=== PATIENT | male | born 1995 | race Caucasian/White ===

== ENCOUNTER 2017-05-17 09:03 | Inpatient (IN) | END 2017-05-18 15:40 | disposition EXP | DRG 64 | DX: I60.8 Other nontraumatic subarachnoid hemorrhage (principal); G93.6 Cerebral edema; G93.5 Compression of brain; J96.90 Respiratory failure, unspecified, unspecified whether with hypoxia or hypercapnia; Z93.0 Tracheostomy status; G93.40 Encephalopathy, unspecified; N17.0 Acute kidney failure with tubular necrosis; G91.9 Hydrocephalus, unspecified; R57.9 Shock, unspecified; Z93.1 Gastrostomy status; Z66 Do not resuscitate; R40.2433 Glasgow coma scale score 3-8, at hospital admission; D64.9 Anemia, unspecified; S72.301D Unspecified fracture of shaft of right femur, subsequent encounter for closed fracture with routine healing ==

== ENCOUNTER 2017-05-18 14:15 | Inpatient (IN) | payer OTHER ==
[~2017-05-18] VITALS: Ht 188 cm; Wt 80.2 kg
[2017-05-18] VITALS (36 sets, daily range): BP systolic 54–158; BP diastolic 37–87; PULSE 92–106; RESP 11–21; Ht 188 cm; Wt 80.2 kg
[2017-05-18] MEDS: ACCU-CHEK XX SCH ×4 (17:43→23:23)
[2017-05-18 18:30] LABS: Arterial Base Excess -0.5 mmol/L (-3.0-3); Arterial COHb 0.3 % (0.0-3.0); Arterial Fraction of Oxyhgb 96.7 % (93.0-99.0); Arterial HCO3 24.2 mmol/L (22.0-26.0); Arterial MetHb 0.4 % (0.0-1.5); Arterial Total Hemglobin 9.4 g/dl (12.0-18.0); MODE VENT - AC
[2017-05-18 18:33] LABS: BASOPHIL # 0.1 10^3/ul (0.0-0.1); BASOPHILS % 0.3 % (0.0-2.0); EOSINOPHILS # 0.5 10^3/ul (0.0-0.5); EOSINOPHILS % 3.3 % (0.0-7.0); HEMATOCRIT 23.9 % (42.0-52.0); HEMOGLOBIN 7.9 g/dl (14.0-18.0); LYMPHOCYTES % 6.6 % (15.0-51.0); MEAN CORPUSCULAR HEMOGLOBIN 31.1 pg (29.0-33.0); MEAN CORPUSCULAR HGB CONC 33.1 g/dl (32.0-37.0); MEAN CORPUSCULAR VOLUME 94.1 fl (82.0-101.0); MONOCYTE # 1.3 10^3/ul (0.3-0.9); MONOCYTES % 8.1 % (0.0-11.0); NEUTROPHIL # 12.7 10^3/ul (1.6-7.5); NEUTROPHILS % 80.7 % (39.0-77.0); PLATELET COUNT 274 10^3/UL (140-415); RED BLOOD COUNT 2.54 10^6/ul (4.70-6.10); RED CELL DISTRIBUTION WIDTH 13.9 % (11.5-14.5); WHITE BLOOD COUNT 15.7 10^3/ul (4.8-10.8)
[2017-05-18] MEDS: SOD CHLORIDE 0.9% 1,000 ML IV SCH (18:38)
[2017-05-18] MEDS: ARTIFICIAL TEARS 15 ML OPH BOTH EYES SCH ×3 (18:38→22:59)
[2017-05-18 18:54] LABS: MAGNESIUM 2.8 mg/dl (1.7-2.5)
[2017-05-18 19:16] LABS: TROPONIN-I < 0.012 ng/ml (0.00-0.12)
--- NOTE | 2017-05-18 19:46 | OPPN ---
Date/Time of Note Date/Time of Note DATE: 05/18/17 TIME: 19:42 Event Note ARTERIAL LINE (A-Line) PLACEMENT Date: 05/18/17 Time: 19:08 Indication: Frequent ABG sampling for [facility] patient Anesthesiologist: Amanda The patients right wrist was prepped and draped in sterile fashion. A 20G Arrow arterial line was introduced into the right radial artery. The catheter was threaded over the guide wire and the needle was removed with appropriate pulsatile blood return. The catheter was then secured in place with a sterile Tegaderm dressing. Estimated Blood Loss: 5ml There were no complications BONG LEE MD May 18, 2017 19:46
[2017-05-18 19:52] LABS: ALBUMIN 4.1 g/dl (3.3-4.9); ALBUMIN/GLOBULIN RATIO 0.82; BILIRUBIN,DIRECT 0.1 mg/dl (0.00-0.20); BILIRUBIN,INDIRECT 0.4 mg/dl (0-1.1); BILIRUBIN,TOTAL 0.5 mg/dl (0.2-1.3); CALCIUM 9.8 mg/dl (8.4-10.2); POTASSIUM 3.6 mmol/L (3.5-5.1); TOTAL PROTEIN 9.1 g/dl (6.1-8.1)
[2017-05-18 20:01] LABS: CREATININE 4.97 mg/dl (0.61-1.24)
--- NOTE | 2017-05-18 20:09 | RADRPT ---
PROCEDURE: XR Chest. CLINICAL INDICATION: BASELINE ([facility] PATIENT. ORGAN DONOR) TECHNIQUE: Single frontal view of the chest was obtained COMPARISON: Chest x-ray 05/18/2017 at 06:05 a.m. FINDINGS: Tracheostomy tube and right central venous catheter remain in place. The cardiomediastinal silhouette is within normal limits. Ill-defined retrocardiac opacity persists, unchanged. No pneumothorax, significant pleural effusion, or new consolidation is identified. There is no evidence of pulmonary vascular congestion. The osseous structures, as visualized, are unremarkable. IMPRESSION: 1. Stable positions of the tracheostomy tube and right central venous catheter. 2. Ill-defined retrocardiac opacity, possibly representing atelectasis, unchanged. RPTAT: QQ Physician Pamela Date Time Electronically viewed and signed by Physician Pamela on 05/18/2017 20:09 KASSIE/
[2017-05-18 20:13] LABS: CK-MB 2.81 ng/ml (0.0-2.4)
[2017-05-18] MEDS ORDERED: HETASTARCH 6% NACL 500 ML BAG IV* ONE (21:00)
[2017-05-18] MEDS: DOBUTamine/D5W 1 MG/ML DRIP 250 ML IV SCH (21:14)
[2017-05-18] MEDS: METHYLPRED. NA SUCC 500 MG in DEXTROSE 5% 50 ML IVPB SCH (22:02)
--- NOTE | 2017-05-18 22:17 | RADRPT ---
PROCEDURE: ULTRASOUND ABDOMEN/RETROPERITONEAL CLINICAL INDICATION: 22-year-old male for [facility]. TECHNIQUE: Multiple sonographic of the abdomen and retroperitoneum were obtained. The images were reviewed on a PACS workstation. COMPARISON: None. FINDINGS: The proximal inferior vena cava and abdominal aorta are unremarkable. The pancreas is not well visualized secondary to overlying bowel gas. The liver displays normal echogenicity. The liver measures 20.8 cm in length. No evidence of intrah epatic biliary ductal dilatation is seen. The portal and hepatic veins are unremarkable. The gallbladder demonstrates no wall thickening, sludge, nor stones. No pericholecystic fluid is see n. The common bile duct measures 4.5 mm and is not dilated. The kidneys display normal echogenicity. The right kidney measures 11.4 x 6.0 x 5.2 cm and the left measures 12.5 x 6.0 x 5.8 cm. No caliectasis or hydronephrosis is seen. The spleen measures 12.9 cm and is without focal areas of abnormal echogenicity. No free fluid is seen. IMPRESSION: Unremarkable abdominal and retroperitoneal ultrasound. .Abhi Camp MD, MD Date Time Electronically viewed and signed by .Abhi Camp MD, MD on 05/18/2017 22:16 .M/
[2017-05-19] VITALS (108 sets, daily range): BP systolic 87–165; BP diastolic 27–84; PULSE 65–93; RESP 10–23
[2017-05-19 00:35] LABS: AADO2 Arterial 136.7 mmHg (7.0-24.0); Arterial Base Excess -2.4 mmol/L (-3.0-3); Arterial COHb 0.3 % (0.0-3.0); Arterial Fraction of Oxyhgb 96.3 % (93.0-99.0); Arterial HCO3 22.9 mmol/L (22.0-26.0); Arterial MetHb 0.2 % (0.0-1.5); Arterial Total Hemglobin 8.9 g/dl (12.0-18.0); Blood Gas Low PEEP Setting 0 cmH2O; Blood Gas PS 0; MODE VENT - BIPHASIC
[2017-05-19] MEDS: ACCU-CHEK XX SCH ×12 (01:01→23:01)
[2017-05-19] MEDS: ARTIFICIAL TEARS 15 ML OPH BOTH EYES SCH ×12 (01:01→22:57)
[2017-05-19 01:13] LABS: PHOSPHORUS 8.8 mg/dl (2.5-4.9)
--- NOTE | 2017-05-19 01:17 | RADRPT ---
PROCEDURE: XR Chest. CLINICAL INDICATION: Shortness of breath. TECHNIQUE: AP Portable chest. COMPARISON: 05/18/2017 FINDINGS: The cardiomediastinal silhouette is normal. New mild hazy opacity at the left lung base. The osseo us structures are unremarkable. A tracheostomy tube tip is in the proximal to mid trachea. A right chest tunnel dialysis catheter i s seen with tips in the superior vena cava and cavoatrial junction, without change. IMPRESSION: New mild opacity at the left lung base likely due to small pleural effusion and atelectasis. Pneumo ling is not excluded. RPTAT: HIKT .Javid Pope MD, MD Date Time Electronically viewed and signed by .Javid Pope MD, MD on 05/19/2017 01:17 .T/
[2017-05-19 01:27] LABS: INR 1.27; PT RATIO 1.3
[2017-05-19 01:28] LABS: PARTIAL THROMBOPLASTIN TIME 31.2 Sec (25.0-35.0)
[2017-05-19 02:45] LABS: ALANINE AMINOTRANSFERASE 28 IU/L (13-69); ALBUMIN 3.7 g/dl (3.3-4.9); ALKALINE PHOSPHATASE 324 IU/L (42-121); ANION GAP 22 (8-16); ASPARTATE AMINO TRANSFERASE 24 IU/L (15-46); BILIRUBIN,INDIRECT 0.2 mg/dl (0-1.1); BILIRUBIN,TOTAL 0.2 mg/dl (0.2-1.3); BLOOD UREA NITROGEN 86 mg/dl (7-20); CALCIUM 9.1 mg/dl (8.4-10.2); CARBON DIOXIDE 22 mmol/L (21-31); CHLORIDE 103 mmol/L (97-110); CREATINE KINASE 167 IU/L (23-200); GLUCOSE 150 mg/dl (70-220); POTASSIUM 3.6 mmol/L (3.5-5.1); SODIUM 143 mmol/L (135-144); TOTAL PROTEIN 8.3 g/dl (6.1-8.1)
[2017-05-19 02:49] LABS: ABNORMAL IP MESSAGE 1; BASOPHIL # 0.1 10^3/ul (0.0-0.1); BASOPHILS % 0.3 % (0.0-2.0); EOSINOPHILS # 0.4 10^3/ul (0.0-0.5); EOSINOPHILS % 2.4 % (0.0-7.0); HEMATOCRIT 20.8 % (42.0-52.0); LYMPHOCYTES # 0.3 10^3/ul (0.8-2.9); LYMPHOCYTES % 2.1 % (15.0-51.0); MEAN CORPUSCULAR HEMOGLOBIN 31.7 pg (29.0-33.0); MEAN CORPUSCULAR HGB CONC 33.2 g/dl (32.0-37.0); MEAN CORPUSCULAR VOLUME 95.4 fl (82.0-101.0); MEAN PLATELET VOLUME 11.2 fl (7.4-10.4); MONOCYTE # 0.6 10^3/ul (0.3-0.9); MONOCYTES % 4.5 % (0.0-11.0); NEUTROPHIL # 12.9 10^3/ul (1.6-7.5); NEUTROPHILS % 90.1 % (39.0-77.0); PLATELET COUNT 249 10^3/UL (140-415); POSITIVE DIFF @See below; RED BLOOD COUNT 2.18 10^6/ul (4.70-6.10); RED CELL DISTRIBUTION WIDTH 13.9 % (11.5-14.5); WHITE BLOOD COUNT 14.3 10^3/ul (4.8-10.8)
[2017-05-19 02:57] LABS: CK-MB 4.39 ng/ml (0.0-2.4)
[2017-05-19 02:58] LABS: CREATININE 5.45 mg/dl (0.61-1.24)
[2017-05-19 03:03] LABS: TROPONIN-I < 0.012 ng/ml (0.00-0.12)
[2017-05-19 03:13] LABS: HEMOGLOBIN 6.9 g/dl (14.0-18.0)
[2017-05-19] MEDS ORDERED: ALBUMIN HUMAN 25% 100 ML IV ONE ×2 (03:30→09:30)
[2017-05-19] MEDS: METHYLPRED. NA SUCC 500 MG in DEXTROSE 5% 50 ML IVPB SCH ×3 (06:04→21:46)
[2017-05-19 06:14] LABS: AADO2 Arterial 133.2 mmHg (7.0-24.0); Arterial Base Excess -3.8 mmol/L (-3.0-3); Arterial COHb 0.3 % (0.0-3.0); Arterial Fraction of Oxyhgb 96.4 % (93.0-99.0); Arterial MetHb 0.4 % (0.0-1.5); Arterial Total Hemglobin 8.7 g/dl (12.0-18.0); Blood Gas Low PEEP Setting 0 cmH2O; MODE VENT - BIPHASIC
[2017-05-19 06:34] LABS: ABNORMAL IP MESSAGE 1; HEMATOCRIT 20.8 % (42.0-52.0); MEAN CORPUSCULAR HEMOGLOBIN 29.8 pg (29.0-33.0); MEAN CORPUSCULAR HGB CONC 31.3 g/dl (32.0-37.0); MEAN CORPUSCULAR VOLUME 95.4 fl (82.0-101.0); MEAN PLATELET VOLUME 10.8 fl (7.4-10.4); PLATELET COUNT 219 10^3/UL (140-415); POSITIVE DIFF @See below; RED BLOOD COUNT 2.18 10^6/ul (4.70-6.10); RED CELL DISTRIBUTION WIDTH 14.4 % (11.5-14.5); WHITE BLOOD COUNT 12.7 10^3/ul (4.8-10.8)
[2017-05-19 06:46] LABS: INR 1.25; PARTIAL THROMBOPLASTIN TIME 30.6 Sec (25.0-35.0); PROTIME 15.8 Sec (12.2-14.2); PT RATIO 1.2
[2017-05-19 07:13] LABS: HEMOGLOBIN 6.5 g/dl (14.0-18.0)
[2017-05-19 07:13] LABS: ALANINE AMINOTRANSFERASE 27 IU/L (13-69); ALBUMIN 3.5 g/dl (3.3-4.9); ALBUMIN/GLOBULIN RATIO 0.83; ALKALINE PHOSPHATASE 260 IU/L (42-121); ANION GAP 29 (8-16); ASPARTATE AMINO TRANSFERASE 22 IU/L (15-46); BLOOD UREA NITROGEN 95 mg/dl (7-20); CALCIUM 8.8 mg/dl (8.4-10.2); CARBON DIOXIDE 23 mmol/L (21-31); CHLORIDE 100 mmol/L (97-110); CREATINE KINASE 192 IU/L (23-200); GLUCOSE 153 mg/dl (70-220); SODIUM 147 mmol/L (135-144); TOTAL PROTEIN 7.7 g/dl (6.1-8.1)
[2017-05-19 07:14] LABS: PHOSPHORUS 11.1 mg/dl (2.5-4.9)
[2017-05-19 07:24] LABS: CREATININE 5.37 mg/dl (0.61-1.24)
[2017-05-19 07:25] LABS: POTASSIUM 5.1 mmol/L (3.5-5.1)
[2017-05-19 07:27] LABS: CK-MB 5.42 ng/ml (0.0-2.4); TROPONIN-I < 0.012 ng/ml (0.00-0.12)
--- NOTE | 2017-05-19 07:33 | RADRPT ---
PROCEDURE: XR Chest. CLINICAL INDICATION: Respiratory failure TECHNIQUE: Single frontal chest x-ray. COMPARISON: 05/19/2017 at 12:27 a.m. FINDINGS: A tracheostomy tube is in place with tip in the mid trachea. Right IJ tunnel dialysis catheter fredy ins in satisfactory position. Hazy opacity at the left lung base is again identified. There is no pneumothorax. The cardiomediastinal silhouette is unremarkable. The osseous structures are intact. IMPRESSION: 1. No change in hazy opacity at the left lung base likely reflecting combination of pleural effusio n and air space disease. 2. Tubes and lines remain in satisfactory position. RPTAT: EE .Nicolas Burton MD, MD Date Time Electronically viewed and signed by .Nicolas Burton MD, on 05/19/2017 07:33 .O/
--- NOTE | 2017-05-19 08:59 | PN ---
DATE: 05/19/2017 SUBJECTIVE DATA: The patient remains critically ill, on ventilatory support. The patient is being evaluated for organ donation and organ procurement. No other events noted. OBJECTIVE DATA: VITAL SIGNS: Blood pressure 104/64, respirations 18, pulse 96, temperature 98.6. HEENT: Head is normocephalic. NECK: Supple. HEART: Regular rate. LUNGS: Diminished breath sounds at base. ABDOMEN: Soft, nontender to palpation. EXTREMITIES: No clubbing, cyanosis, no edema. DERMATOLOGIC: No rashes. MUSCULOSKELETAL: No joint effusion. NEUROLOGIC: Unchanged exam. MEDICATIONS: The patient's medications have been reviewed. LABORATORY AND DIAGNOSTIC DATA: White count 12.6, hemoglobin 6.5, platelet count 219,000. Sodium 147, potassium 5.1, BUN 95, creatinine 5.37. IMPRESSION: 1. Aneuric. Acute kidney injury. The patient is scheduled for hemodialysis today, per [facility] organ donation. 2. Anemia. 3. Mineral bone disorder. 4. Shock. 5. Ventricular respiratory failure. 6. Dysphagia. 7. Brain . 8. Traumatic brain injury. 9. Subarachnoid hemorrhage. PLAN: The patient is undergoing organ donation for [facility]. Will have hemodialysis today. Dictated By: Manohar Colin DO /[email or web address]/nader /Document#: [id number]
[2017-05-19] MEDS ORDERED: ALBUTEROL/IPRATROPIUM (NEB) 3 ML AMP HHN SCH (09:00)
[2017-05-19 09:14] LABS: HEMATOCRIT 20.5 % (42.0-52.0)
[2017-05-19 09:21] LABS: HEMOGLOBIN 6.6 g/dl (14.0-18.0)
[2017-05-19] MEDS: ALBUTEROL 18 GM INHALER INH SCH ×3 (09:44→18:00)
[2017-05-19] MEDS: IPRATROPIUM (HFA) 12.9 GM INHALER INH SCH ×3 (09:45→18:01)
[2017-05-19] MEDS ORDERED: LEVOTHYROXINE 100 MCG VIAL IV ONE (10:30)
[2017-05-19 11:08] LABS: ANISOCYTOSIS 1+ (0-0); GIANT THROMBO% (M) 1 % (0-0); MICROCYTOSIS 1+ (0-0); MONOCYTES % (M) 2 % (0-11); PLATELET ESTIMATE NORMAL; POLYCHROMASIA 1+ (0-0)
--- NOTE | 2017-05-19 11:19 | RADRPT ---
Vent Rate: 94 bpm RR Interval: 0 msec RI Interval: 126 msec QRS Duration: 90 msec QT Interval: 352 msec QTC Interval: 440 msec P-R-T Palmer: 45 - 77 - 37 degrees Normal sinus rhythm Voltage criteria for left ventricular hypertrophy ST elevation, consider early repolarization, pericarditis, or injury T wave abnormality, consider inferior ischemia Abnormal ECG Electronically Signed By: Frank Bowling [id number]
[2017-05-19 11:51] LABS: AADO2 Arterial 157.4 mmHg (7.0-24.0); Arterial Base Excess -5.3 mmol/L (-3.0-3); Arterial COHb 0.2 % (0.0-3.0); Arterial Fraction of Oxyhgb 94.5 % (93.0-99.0); Arterial HCO3 20.6 mmol/L (22.0-26.0); Arterial MetHb 0.1 % (0.0-1.5); Arterial Total Hemglobin 7.8 g/dl (12.0-18.0); MODE VENT - BIPHASIC
[2017-05-19] MEDS: LEVOTHYROXINE 200 MCG in SOD CHLORIDE 0.9% 500 ML IV SCH (11:53)
--- NOTE | 2017-05-19 12:28 | RADRPT ---
PROCEDURE: XR Chest. CLINICAL INDICATION: Organ donation TECHNIQUE: Anterior chest x-ray. COMPARISON: 05/19/2017 at 0602 hours FINDINGS: Tracheostomy tube and dual-lumen dialysis catheter demonstrates stable and satisfactory position. Mild consolidation left lung base with partly obscured left hemidiaphragm is unchanged from previous exam. Blunting left costophrenic angles unchanged from previous exam. The lungs are otherwise clear. No pleural effusion identified. There is no evidence of pneumothorax. The cardiomediastinal silhouette is unremarkable. The soft tissues are normal. Osseous structures are unremarkable. IMPRESSION: 1. Atelectasis versus infiltrate in left lung base, unchanged. 2. Hazy opacity with blunting left costophrenic angle, likely small pleural effusion, unchanged. 3. Stable and satisfactory position life-support lines. RPTAT: QQ .Nitesh Dodson MD, Date Time Electronically viewed and signed by .Nitesh Dodson MD, on 05/19/2017 12:28 .M/
[2017-05-19 12:55] LABS: ABNORMAL IP MESSAGE 1; BASOPHILS % 0.1 % (0.0-2.0); HEMATOCRIT 21.7 % (42.0-52.0); LYMPHOCYTES # 0.5 10^3/ul (0.8-2.9); LYMPHOCYTES % 3.8 % (15.0-51.0); MEAN CORPUSCULAR HEMOGLOBIN 30.6 pg (29.0-33.0); MEAN CORPUSCULAR HGB CONC 32.3 g/dl (32.0-37.0); MEAN CORPUSCULAR VOLUME 94.8 fl (82.0-101.0); MEAN PLATELET VOLUME 10.9 fl (7.4-10.4); MONOCYTE # 0.2 10^3/ul (0.3-0.9); MONOCYTES % 1.6 % (0.0-11.0); NEUTROPHIL # 11.4 10^3/ul (1.6-7.5); PLATELET COUNT 231 10^3/UL (140-415); POSITIVE DIFF @See below; RED BLOOD COUNT 2.29 10^6/ul (4.70-6.10); RED CELL DISTRIBUTION WIDTH 15.2 % (11.5-14.5); WHITE BLOOD COUNT 12.1 10^3/ul (4.8-10.8)
[2017-05-19 13:12] LABS: ALANINE AMINOTRANSFERASE 28 IU/L (13-69); ALBUMIN 3.9 g/dl (3.3-4.9); ALBUMIN/GLOBULIN RATIO 0.92; ALKALINE PHOSPHATASE 254 IU/L (42-121); ANION GAP 31 (8-16); ASPARTATE AMINO TRANSFERASE 21 IU/L (15-46); BILIRUBIN,INDIRECT 0.1 mg/dl (0-1.1); BILIRUBIN,TOTAL 0.1 mg/dl (0.2-1.3); BLOOD UREA NITROGEN 107 mg/dl (7-20); CARBON DIOXIDE 23 mmol/L (21-31); CHLORIDE 98 mmol/L (97-110); CREATINE KINASE 232 IU/L (23-200); GLUCOSE 136 mg/dl (70-220); SODIUM 147 mmol/L (135-144); TOTAL PROTEIN 8.1 g/dl (6.1-8.1)
[2017-05-19 13:19] LABS: CREATININE 5.68 mg/dl (0.61-1.24)
[2017-05-19 13:20] LABS: POTASSIUM 5.4 mmol/L (3.5-5.1)
[2017-05-19 13:21] LABS: INR 1.26; PARTIAL THROMBOPLASTIN TIME 31.3 Sec (25.0-35.0); PROTIME 15.9 Sec (12.2-14.2); PT RATIO 1.2
[2017-05-19 13:27] LABS: CK-MB 6.33 ng/ml (0.0-2.4); PHOSPHORUS 11.2 mg/dl (2.5-4.9); TROPONIN-I < 0.012 ng/ml (0.00-0.12)
--- NOTE | 2017-05-19 14:08 | EN ---
Date/Time of Note Date/Time of Note DATE: 05/19/17 TIME: 14:06 Event Note Medicine Medicine Event Note Procedure note Procedure bronchoscopy with lavage Indication: organ procurement Description Via tracheostomy. Patient remains somnolent on mechanical ventilation blood pressure EKG and pulse oximetry were continuously monitored. Patient was placed on 100% FiO2 flexible fiberoptic bronchoscope was passed through the tracheostomy to the level of the darryl which was noted to be sharp in appearance. Left and right lung for then examined in detail. Right lung was first entered. Right upper lobe middle lobe and lower lobe were all examined. Mucosa and anatomy were all normal. Patient had no secretions. The left lung was then entered. Again the left upper lobe lingula and lower lobe examined in detail. Mucosa was all normal. No secretions noted. Bronchoalveolar lavage was performed in the right lower lobe. Taken for Gram stain and culture. Patient tolerated the procedure without complication. ANNA MUELLER MD, [facility] May 19, 2017 14:08
[2017-05-19] MEDS: ALBUMIN HUMAN 25% 100 ML IV PRN ×2 (14:54→16:03)
[2017-05-19] MEDS ORDERED: NORepinephrine 8MG/250 ML (PMX 0 ML ONE (15:12)
[2017-05-19] MEDS: SOD CHLORIDE 0.9% 1,000 ML IV SCH (17:30)
[2017-05-19] MEDS ORDERED: INSULIN REGULAR 10 ML INJ IV ONE (18:30)
[2017-05-19 18:35] LABS: AADO2 Arterial 144.2 mmHg (7.0-24.0); Arterial Base Excess -3.3 mmol/L (-3.0-3); Arterial COHb 0.6 % (0.0-3.0); Arterial Fraction of Oxyhgb 92.6 % (93.0-99.0); Arterial HCO3 23.9 mmol/L (22.0-26.0); Arterial MetHb 0.4 % (0.0-1.5); MODE VENT - BIPHASIC
--- NOTE | 2017-05-19 19:05 | RADRPT ---
PROCEDURE: XR Chest. CLINICAL INDICATION: Organ donation TECHNIQUE: Anterior chest x-ray. COMPARISON: 05/19/2017 at 1123 hours FINDINGS: Tracheostomy tube and dual-lumen right sided dialysis catheter demonstrates stable and satisfactory position. Hazy opacity with obscured left hemidiaphragm is unchanged from previous exam. The lungs are otherwise clear. There is no evidence of pneumothorax. The cardiomediastinal silhouette is unremarkable. The soft tissues are normal. Osseous structures are unremarkable. IMPRESSION: 1. Atelectasis versus infiltrate in left lung base, unchanged. 2. Hazy opacity with blunting left costophrenic angle, likely small pleural effusion, unchanged. 3. Stable and satisfactory position life-support lines. RPTAT: QQ .Nitesh Dodson MD, Date Time Electronically viewed and signed by .Nitesh Dodson MD, on 05/19/2017 19:04 .M/
[2017-05-19 19:16] LABS: ABNORMAL IP MESSAGE 1; BASOPHILS % 0.2 % (0.0-2.0); HEMATOCRIT 22.4 % (42.0-52.0); HEMOGLOBIN 7.3 g/dl (14.0-18.0); LYMPHOCYTES # 0.5 10^3/ul (0.8-2.9); LYMPHOCYTES % 3.4 % (15.0-51.0); MEAN CORPUSCULAR HEMOGLOBIN 31.2 pg (29.0-33.0); MEAN CORPUSCULAR HGB CONC 32.6 g/dl (32.0-37.0); MEAN CORPUSCULAR VOLUME 95.7 fl (82.0-101.0); MONOCYTE # 0.3 10^3/ul (0.3-0.9); MONOCYTES % 1.8 % (0.0-11.0); NEUTROPHIL # 14.5 10^3/ul (1.6-7.5); NEUTROPHILS % 93.8 % (39.0-77.0); PLATELET COUNT 213 10^3/UL (140-415); POSITIVE DIFF @See below; RED BLOOD COUNT 2.34 10^6/ul (4.70-6.10); RED CELL DISTRIBUTION WIDTH 15.3 % (11.5-14.5); WHITE BLOOD COUNT 15.5 10^3/ul (4.8-10.8)
[2017-05-19 19:33] LABS: INR 1.29; PROTIME 16.2 Sec (12.2-14.2); PT RATIO 1.3
[2017-05-19 19:34] LABS: PARTIAL THROMBOPLASTIN TIME 31.5 Sec (25.0-35.0); THROMBIN TIME 14.9 SEC (13.8-19.1)
[2017-05-19 19:38] LABS: PHOSPHORUS 10.8 mg/dl (2.5-4.9)
[2017-05-19 19:40] LABS: ALANINE AMINOTRANSFERASE 31 IU/L (13-69); ALBUMIN 4.2 g/dl (3.3-4.9); ALBUMIN/GLOBULIN RATIO 1.07; ALKALINE PHOSPHATASE 230 IU/L (42-121); ANION GAP 22 (8-16); ASPARTATE AMINO TRANSFERASE 31 IU/L (15-46); BILIRUBIN,INDIRECT 0.2 mg/dl (0-1.1); BILIRUBIN,TOTAL 0.2 mg/dl (0.2-1.3); BLOOD UREA NITROGEN 91 mg/dl (7-20); CALCIUM 8.9 mg/dl (8.4-10.2); CARBON DIOXIDE 24 mmol/L (21-31); CHLORIDE 98 mmol/L (97-110); CREATINE KINASE 488 IU/L (23-200); GLUCOSE 155 mg/dl (70-220); POTASSIUM 4.3 mmol/L (3.5-5.1); SODIUM 140 mmol/L (135-144); TOTAL PROTEIN 8.1 g/dl (6.1-8.1)
[2017-05-19 19:51] LABS: CK-MB 8.62 ng/ml (0.0-2.4); TROPONIN-I < 0.012 ng/ml (0.00-0.12)
[2017-05-19] MEDS: DOBUTamine/D5W 1 MG/ML DRIP 250 ML IV SCH (21:00)
[2017-05-19 21:03] LABS: ADD UMIC YES; UR ASCORBIC ACID NEGATIVE (NEGATIVE); UR BILIRUBIN (Dip) NEGATIVE (NEGATIVE); UR BLOOD (Dip) 1+ mg/dL (NEGATIVE); UR CLARITY CLOUDY (CLEAR); UR COLOR YELLOW (YELLOW); UR GLUCOSE (Dip) 1+ mg/dL (NEGATIVE); UR KETONES (Dip) NEGATIVE (NEGATIVE); UR LEUKOCYTE ESTERASE (Dip) NEGATIVE Leu/ul (NEGATIVE); UR MUCUS FEW /HPF (NONE SEEN); UR NITRITE (Dip) NEGATIVE (NEGATIVE); UR RBC 8 /HPF (0-5); UR SPECIFIC GRAVITY (Dip) 1.019 (1.003-1.030); UR TOTAL PROTEIN (Dip) 1+ mg/dl (NEGATIVE); UR UROBILINOGEN (Dip) NEGATIVE (NEGATIVE)
[2017-05-19] MEDS: DOPamine-D5W 1.6 MG/ML 250 ML IV SCH (22:31)
--- NOTE | 2017-05-19 22:39 | RADRPT ---
Echocardiogram Report Patient Name: SABIHA COTTO Gender: Male Date: 1995 Study Date: 19-May-2017 International Specialist: [facility] Location: [id number] Ref. Physician: ROBSON GROVER Quality: Technically Difficult Study Procedures: Transthoracic echocardiogram with complete 2D, M-Mode, and doppler examination. Indications: Organ Donation. 2D/M Mode Doppler Measurement Value Normal Ranges Measurement Value Normal Ranges LVIDd 2D 5.6 3.5 - 5.6 cm AV Peak Kevin 1.0 m/sec LVIDs 2D 4.2 2.1 - 4.1 cm AV Peak PG 4.0 mmHg FS 2D 24.8 % LVOT Peak Kevin 0.8 m/sec LVPWd 2D 1.3 0.6 - 1.1 cm LVOT Peak PG 3.0 mmHg IVSd 2D 1.3 0.6 - 1.1 cm MV E Peak Kevin 0.7 m/sec IVS/LVPW 2D 1.0 MV A Peak Kevin 0.4 m/sec AoR Diam 2D 2.4 2.0 - 3.7 cm MV E/A 1.6 LA/Ao 2D 1 0 - 1 MV Decel Time 215 msec EDV 2D 176.0 cm3 MV E/A 1.6 ESV 2D 74.6 cm3 TR Peak Kevin 2.2 m/sec LA Dimen 2D 3.5 2.3 - 4.0 cm TR Peak PG 20.0 mmHg RVSP 35.0 mmHg Findings Left Ventricle: Lower limits of normal systolic function. Normal left ventricular cavity size. Left ventricular wall thickness upper limits of normal. Ejection fraction is visually estimated at 50 %. Tissue Doppler/Mitral Doppler indices are within normal limits. Right Ventricle: Normal right ventricular size. Normal right ventricular systolic function. Left Atrium: The left atrium is normal in size. Right Atrium: The right atrium is normal in size. Mitral Valve: Mild mitral leaflet calcification. Mild mitral annular calcification. Trace mitral regurgitation. Aortic Valve: Normal appearance of the aortic valve. No significant aortic stenosis or insufficiency. Tricuspid Valve: Normal appearance of the tricuspid valve. Estimated peak PA systolic pressure 35 mmHg. There is trace tricuspid regurgitation. Pulmonic Valve: Pulmonic valve not well visualized. There is trace pulmonic regurgitation. Pericardium: Normal pericardium with no significant pericardial effusion. Aorta: Normal aortic root. IVC: Dilated IVC without respiratory collapse, however, patient on ventilator. Conclusions Lower limits of normal systolic function. Normal left ventricular cavity size. Left ventricular wall thickness upper limits of normal. Ejection fraction is visually estimated at 50 %. Tissue Doppler/Mitral Doppler indices are within normal limits. Normal right ventricular size. Normal right ventricular systolic function. Mild mitral leaflet calcification. Mild mitral annular calcification. Trace mitral regurgitation. Normal appearance of the aortic valve. No significant aortic stenosis or insufficiency. Normal appearance of the tricuspid valve. Estimated peak PA systolic pressure 35 mmHg. There is trace tricuspid regurgitation. Normal pericardium with no significant pericardial effusion. Electronically Signed By: Kota Saenz 19-May-2017 22:38:16 -0700 Patient Name: SABIHA COTTO Study Date: 19-May-2017 [id number]
[2017-05-20] VITALS (104 sets, daily range): BP systolic 93–166; BP diastolic 40–87; PULSE 65–89; RESP 10–13
[2017-05-20 00:24] LABS: Arterial Base Excess -5.1 mmol/L (-3.0-3); Arterial COHb 0.2 % (0.0-3.0); Arterial Fraction of Oxyhgb 93.6 % (93.0-99.0); Arterial HCO3 21.8 mmol/L (22.0-26.0); Arterial MetHb 0.3 % (0.0-1.5); Arterial Total Hemglobin 8.7 g/dl (12.0-18.0); Blood Gas Low PEEP Setting 0 cmH2O; MODE VENT - BIPHASIC
[2017-05-20] MEDS: ARTIFICIAL TEARS 15 ML OPH BOTH EYES SCH ×12 (00:50→22:41)
[2017-05-20 00:59] LABS: ABNORMAL IP MESSAGE 1; BASOPHILS % 0.1 % (0.0-2.0); HEMATOCRIT 23.1 % (42.0-52.0); HEMOGLOBIN 7.3 g/dl (14.0-18.0); LYMPHOCYTES # 0.4 10^3/ul (0.8-2.9); LYMPHOCYTES % 2.1 % (15.0-51.0); MEAN CORPUSCULAR HEMOGLOBIN 29.7 pg (29.0-33.0); MEAN CORPUSCULAR HGB CONC 31.6 g/dl (32.0-37.0); MEAN CORPUSCULAR VOLUME 93.9 fl (82.0-101.0); MONOCYTE # 0.5 10^3/ul (0.3-0.9); MONOCYTES % 3.1 % (0.0-11.0); NEUTROPHIL # 15.4 10^3/ul (1.6-7.5); NEUTROPHILS % 94.2 % (39.0-77.0); PLATELET COUNT 221 10^3/UL (140-415); POSITIVE DIFF @See below; RED BLOOD COUNT 2.46 10^6/ul (4.70-6.10); RED CELL DISTRIBUTION WIDTH 15.7 % (11.5-14.5); WHITE BLOOD COUNT 16.4 10^3/ul (4.8-10.8)
[2017-05-20 01:02] LABS: INR 1.26; PARTIAL THROMBOPLASTIN TIME 32.4 Sec (25.0-35.0); PROTIME 15.9 Sec (12.2-14.2); PT RATIO 1.2; THROMBIN TIME 14.7 SEC (13.8-19.1)
--- NOTE | 2017-05-20 01:03 | RADRPT ---
PROCEDURE: CHEST - 1 VIEW CLINICAL INDICATION: 22-year-old male for [facility] donation protocol. TECHNIQUE: A single frontal AP portable view of the chest was performed. The images were reviewed on a PACS workstation. COMPARISON: Chest x-ray May 19, 2017; CT chest May 16, 2017. FINDINGS: There is a tracheostomy tube in place. There is a right internal jugular tunneled hemodialysis cath eter the tip in the distal superior vena cava. The cardiomediastinal silhouette is without signific ant interval change. There is persistent mild left lower lung zone atelectasis. There is no eviden ce for congestive heart failure. There is no evidence for pneumothorax. IMPRESSION: 1. Tracheostomy tube. 2. Right internal jugular central line with the tip in the distal superior vena cava. 3. Left lower lung zone atelectasis without interval change. .Abhi Camp MD, Date Time Electronically viewed and signed by .Abhi Camp MD, on 05/20/2017 01:03 .Faith/
[2017-05-20 01:04] LABS: PHOSPHORUS 11.5 mg/dl (2.5-4.9)
[2017-05-20 01:05] LABS: ALANINE AMINOTRANSFERASE 32 IU/L (13-69); ALBUMIN 4.1 g/dl (3.3-4.9); ALBUMIN/GLOBULIN RATIO 0.97; ALKALINE PHOSPHATASE 232 IU/L (42-121); ANION GAP 28 (8-16); ASPARTATE AMINO TRANSFERASE 40 IU/L (15-46); BILIRUBIN,INDIRECT 0.1 mg/dl (0-1.1); BILIRUBIN,TOTAL 0.1 mg/dl (0.2-1.3); BLOOD UREA NITROGEN 98 mg/dl (7-20); CALCIUM 9.2 mg/dl (8.4-10.2); CARBON DIOXIDE 24 mmol/L (21-31); CHLORIDE 96 mmol/L (97-110); CREATINE KINASE 591 IU/L (23-200); GLUCOSE 166 mg/dl (70-220); POTASSIUM 4.3 mmol/L (3.5-5.1); SODIUM 144 mmol/L (135-144); TOTAL PROTEIN 8.3 g/dl (6.1-8.1)
[2017-05-20] MEDS: ACCU-CHEK XX SCH ×12 (01:11→22:47)
[2017-05-20] MEDS ORDERED: INSULIN REGULAR 10 ML INJ IV ONE (01:30)
[2017-05-20] MEDS ORDERED: INSULIN REGULAR, HUMAN 100 UNIT/1 ML 3ML VIAL IV ONE (01:30)
[2017-05-20 01:36] LABS: CK-MB 9.98 ng/ml (0.0-2.4); TROPONIN-I < 0.012 ng/ml (0.00-0.12)
[2017-05-20] MEDS: LEVOTHYROXINE 200 MCG in SOD CHLORIDE 0.9% 500 ML IV SCH (05:59)
[2017-05-20] MEDS: METHYLPRED. NA SUCC 500 MG in DEXTROSE 5% 50 ML IVPB SCH ×3 (06:01→22:40)
[2017-05-20 06:06] LABS: AADO2 Arterial 157.7 mmHg (7.0-24.0); Arterial Base Excess 0 mmol/L (-3.0-3); Arterial COHb 0.3 % (0.0-3.0); Arterial Fraction of Oxyhgb 93.2 % (93.0-99.0); Arterial HCO3 25.9 mmol/L (22.0-26.0); Arterial MetHb 0.3 % (0.0-1.5); Arterial Total Hemglobin 9.1 g/dl (12.0-18.0); Blood Gas Low PEEP Setting 0 cmH2O; MODE VENT - BIPHASIC
[2017-05-20 06:12] LABS: ABNORMAL IP MESSAGE 1; BASOPHILS % 0.1 % (0.0-2.0); LYMPHOCYTES # 0.4 10^3/ul (0.8-2.9); LYMPHOCYTES % 2.1 % (15.0-51.0); MEAN CORPUSCULAR HEMOGLOBIN 30.7 pg (29.0-33.0); MEAN CORPUSCULAR HGB CONC 33.3 g/dl (32.0-37.0); MEAN PLATELET VOLUME 10.8 fl (7.4-10.4); MONOCYTE # 0.6 10^3/ul (0.3-0.9); MONOCYTES % 3.4 % (0.0-11.0); NEUTROPHIL # 17.6 10^3/ul (1.6-7.5); NEUTROPHILS % 93.5 % (39.0-77.0); PLATELET COUNT 217 10^3/UL (140-415); POSITIVE DIFF @See below; RED BLOOD COUNT 2.61 10^6/ul (4.70-6.10); RED CELL DISTRIBUTION WIDTH 15.1 % (11.5-14.5); WHITE BLOOD COUNT 18.8 10^3/ul (4.8-10.8)
--- NOTE | 2017-05-20 06:37 | RADRPT ---
PROCEDURE: XR Chest. CLINICAL INDICATION: [facility] protocol. Consolidation. TECHNIQUE: AP Portable chest. COMPARISON: Chest x-ray 05/20/2017. FINDINGS: A tracheostomy tube is again identified in good position. A right internal jugular tunneled hemodia lysis catheter is again seen with its tip in the distal superior vena cava. The cardiomediastinal s ilhouette appears within normal limits. Patchy consolidation at the left lung base is unchanged. T he right lung is clear. No pneumothorax is seen. Fractures of the left seventh through ninth anteri or ribs identified. No pneumothorax is seen. IMPRESSION: 1. Grossly unchanged left lower lobe patchy consolidation. 2. Tubes and lines remain in satisfactory position. 3. Left lower anterior rib fractures, better appreciated on this study. RPTAT: HJAH .Porsha Oreilly MD, MD Date Time Electronically viewed and signed by .Porsha Oreilly MD, MD on 05/20/2017 06:37 .H/
[2017-05-20 06:41] LABS: INR 1.23; PROTIME 15.6 Sec (12.2-14.2); PT RATIO 1.2
[2017-05-20 06:42] LABS: PARTIAL THROMBOPLASTIN TIME 30.3 Sec (25.0-35.0); THROMBIN TIME 14.3 SEC (13.8-19.1)
[2017-05-20 06:43] LABS: ALANINE AMINOTRANSFERASE 28 IU/L (13-69); ALBUMIN 4.8 g/dl (3.3-4.9); ALBUMIN/GLOBULIN RATIO 1.04; ALKALINE PHOSPHATASE 232 IU/L (42-121); ANION GAP 30 (8-16); ASPARTATE AMINO TRANSFERASE 43 IU/L (15-46); BILIRUBIN,INDIRECT 0.4 mg/dl (0-1.1); BILIRUBIN,TOTAL 0.4 mg/dl (0.2-1.3); BLOOD UREA NITROGEN 70 mg/dl (7-20); CALCIUM 9.6 mg/dl (8.4-10.2); CARBON DIOXIDE 26 mmol/L (21-31); CHLORIDE 95 mmol/L (97-110); CREATINE KINASE 567 IU/L (23-200); GLUCOSE 162 mg/dl (70-220); POTASSIUM 3.8 mmol/L (3.5-5.1); SODIUM 147 mmol/L (135-144); TOTAL PROTEIN 9.4 g/dl (6.1-8.1)
[2017-05-20 06:44] LABS: CK-MB 9.29 ng/ml (0.0-2.4); TROPONIN-I < 0.012 ng/ml (0.00-0.12)
[2017-05-20 06:45] LABS: PHOSPHORUS 7.6 mg/dl (2.5-4.9)
[2017-05-20 06:51] LABS: CREATININE 4.13 mg/dl (0.61-1.24)
[2017-05-20 08:42] LABS: AADO2 Arterial 429.7 mmHg (7.0-24.0); Arterial Base Excess 1.1 mmol/L (-3.0-3); Arterial COHb 0.2 % (0.0-3.0); Arterial Fraction of Oxyhgb 98.7 % (93.0-99.0); Arterial HCO3 26.5 mmol/L (22.0-26.0); Arterial MetHb 0.4 % (0.0-1.5); Arterial Total Hemglobin 8.3 g/dl (12.0-18.0); Blood Gas Low PEEP Setting 0 cmH2O; MODE VENT - BIPHASIC
--- NOTE | 2017-05-20 12:16 | PN ---
DATE: 05/20/2017 SUBJECTIVE DATA: The patient is currently on organ harvesting protocol as he is brain . The patient had hemodialysis yesterday on 2 occasions. No other events noted. OBJECTIVE DATA: VITAL SIGNS: Blood pressure 140/80, respirations 12, pulse 87, temperature 97.6. HEENT: Head is normocephalic. HEART: Regular rate. LUNGS: Shows diminished breath sounds at the bases. ABDOMEN: Soft. EXTREMITIES: No clubbing, cyanosis, or edema. NEUROLOGIC: Unchanged exam. MEDICATIONS: Reviewed. LABORATORY AND DIAGNOSTIC DATA: Showed a sodium 147, potassium 3.8, BUN 70, creatinine 4.13. White count 19.8, hemoglobin 8.0, hematocrit . ASSESSMENT AND PLAN: 1. Anuric acute kidney injury. The patient is on hemodialysis per [facility] Organ Donation. 2. Anemia. 3. Shock. 4. Ventilator dependent respiratory failure. 5. Brain . PLAN: Continue organ harvesting per [facility]. Continue hemodialysis. Dictated By: Manohar Colin DO /marcela/corin /Document#: [id number]
[2017-05-20 12:45] LABS: AADO2 Arterial 167.5 mmHg (7.0-24.0); Arterial Base Excess 0 mmol/L (-3.0-3); Arterial COHb 0.3 % (0.0-3.0); Arterial Fraction of Oxyhgb 94.1 % (93.0-99.0); Arterial HCO3 24.6 mmol/L (22.0-26.0); Arterial MetHb 0.2 % (0.0-1.5); Arterial Total Hemglobin 8.4 g/dl (12.0-18.0); Blood Gas Low PEEP Setting 0 cmH2O; MODE VENT - BIPHASIC
[2017-05-20 13:03] LABS: PHOSPHORUS 7.6 mg/dl (2.5-4.9)
[2017-05-20 13:18] LABS: CK-MB 6.78 ng/ml (0.0-2.4); TROPONIN-I < 0.012 ng/ml (0.00-0.12)
[2017-05-20 13:20] LABS: ALANINE AMINOTRANSFERASE 26 IU/L (13-69); ALBUMIN 4.7 g/dl (3.3-4.9); ALBUMIN/GLOBULIN RATIO 1.09; ALKALINE PHOSPHATASE 227 IU/L (42-121); ANION GAP 31 (8-16); ASPARTATE AMINO TRANSFERASE 40 IU/L (15-46); BILIRUBIN,INDIRECT 0.2 mg/dl (0-1.1); BILIRUBIN,TOTAL 0.2 mg/dl (0.2-1.3); BLOOD UREA NITROGEN 83 mg/dl (7-20); CALCIUM 9.5 mg/dl (8.4-10.2); CARBON DIOXIDE 25 mmol/L (21-31); CHLORIDE 94 mmol/L (97-110); CREATINE KINASE 542 IU/L (23-200); GLUCOSE 128 mg/dl (70-220); POTASSIUM 4.2 mmol/L (3.5-5.1); SODIUM 146 mmol/L (135-144)
[2017-05-20 13:24] LABS: INR 1.26; PARTIAL THROMBOPLASTIN TIME 33.8 Sec (25.0-35.0); PROTIME 15.9 Sec (12.2-14.2); PT RATIO 1.2; THROMBIN TIME 13.8 SEC (13.8-19.1)
[2017-05-20 13:33] LABS: CREATININE 4.44 mg/dl (0.61-1.24)
--- NOTE | 2017-05-20 13:38 | RADRPT ---
PROCEDURE: XR Chest. CLINICAL INDICATION: [facility] protocol/ organ donation protocol. TECHNIQUE: Single frontal chest x-ray. COMPARISON: Chest radiograph 05/20/2017 at 6:04 a.m.. FINDINGS: A tracheostomy tube is partially visualized. A right internal jugular tunneled hemodialysis catheter is again seen with its tip in the distal superior vena cava. The cardiomediastinal silhouette is wi thin normal limits. Patchy consolidation/pleural effusion at the left lung base is again noted. No p neumothorax is seen. Fractures of the left seventh through ninth anterior ribs are noted. IMPRESSION: 1. No significant interval change in left lower lobe patchy consolidation/pleural effusion. 2. Tubes and lines remain in similar position. 3. Left lower anterior rib fractures. RPTAT: QQ .Judith George MD, Date Time Electronically viewed and signed by .Judith George MD, on 05/20/2017 13:38 .N/
[2017-05-20 14:14] LABS: ABNORMAL IP MESSAGE 1; BASOPHILS % 0.1 % (0.0-2.0); HEMATOCRIT 22.9 % (42.0-52.0); HEMOGLOBIN 7.6 g/dl (14.0-18.0); LYMPHOCYTES # 0.4 10^3/ul (0.8-2.9); LYMPHOCYTES % 2.8 % (15.0-51.0); MEAN CORPUSCULAR HEMOGLOBIN 30.3 pg (29.0-33.0); MEAN CORPUSCULAR HGB CONC 33.2 g/dl (32.0-37.0); MEAN CORPUSCULAR VOLUME 91.2 fl (82.0-101.0); MEAN PLATELET VOLUME 11.1 fl (7.4-10.4); MONOCYTE # 0.4 10^3/ul (0.3-0.9); MONOCYTES % 3.2 % (0.0-11.0); NEUTROPHIL # 12.6 10^3/ul (1.6-7.5); NEUTROPHILS % 93.5 % (39.0-77.0); PLATELET COUNT 235 10^3/UL (140-415); POSITIVE DIFF @See below; RED BLOOD COUNT 2.51 10^6/ul (4.70-6.10); RED CELL DISTRIBUTION WIDTH 15.1 % (11.5-14.5); WHITE BLOOD COUNT 13.5 10^3/ul (4.8-10.8)
[2017-05-20] MEDS ORDERED: ALBUMIN HUMAN 25% 100 ML IV ONE ×4 (17:30)
[2017-05-20] MEDS: SOD CHLORIDE 0.9% 1,000 ML IV SCH (17:30)
[2017-05-20 18:42] LABS: Arterial Base Excess -1.3 mmol/L (-3.0-3); Arterial COHb 0.3 % (0.0-3.0); Arterial Fraction of Oxyhgb 94.6 % (93.0-99.0); Arterial HCO3 24.8 mmol/L (22.0-26.0); Arterial MetHb 0.3 % (0.0-1.5); Arterial Total Hemglobin 8.1 g/dl (12.0-18.0); Blood Gas Low PEEP Setting 0 cmH2O; MODE VENT - BIPHASIC
[2017-05-20 19:19] LABS: ABNORMAL IP MESSAGE 1; LYMPHOCYTES # 0.4 10^3/ul (0.8-2.9); LYMPHOCYTES % 3.4 % (15.0-51.0); MEAN CORPUSCULAR HEMOGLOBIN 30.4 pg (29.0-33.0); MEAN CORPUSCULAR HGB CONC 32.9 g/dl (32.0-37.0); MEAN CORPUSCULAR VOLUME 92.5 fl (82.0-101.0); MEAN PLATELET VOLUME 10.8 fl (7.4-10.4); MONOCYTE # 0.3 10^3/ul (0.3-0.9); MONOCYTES % 2.7 % (0.0-11.0); NEUTROPHIL # 9.9 10^3/ul (1.6-7.5); NEUTROPHILS % 93.6 % (39.0-77.0); PLATELET COUNT 218 10^3/UL (140-415); POSITIVE DIFF @See below; RED BLOOD COUNT 2.27 10^6/ul (4.70-6.10); RED CELL DISTRIBUTION WIDTH 15.4 % (11.5-14.5); WHITE BLOOD COUNT 10.6 10^3/ul (4.8-10.8)
--- NOTE | 2017-05-20 19:23 | RADRPT ---
PROCEDURE: Portable chest x-ray. CLINICAL INDICATION: 22-year-old male organ donor protocol TECHNIQUE: Portable AP view of the chest. COMPARISON: May 20, 2017 from earlier the same day FINDINGS: Double-lumen right internal jugular hemodialysis catheter and tracheostomy tube are in unchanged pos ition. Cardiomediastinal contours are normal. Opacity with volume loss left lower lobe is unchanged and may represent atelectasis although aspirat ion or pneumonia cannot be excluded. Negative for pleural effusion or pneumothorax.. No acute bony abnormality. IMPRESSION: Left lower lobe opacity is unchanged and likely represents atelectasis although aspiration or pneumo ling cannot be excluded. RPTAT: HCTS Physician Jens Date Time Electronically viewed and signed by Bud Stuart Physician on 05/20/2017 19:22 /
[2017-05-20 19:24] LABS: HEMOGLOBIN 6.9 g/dl (14.0-18.0)
[2017-05-20 19:33] LABS: INR 1.46; PROTIME 17.8 Sec (12.2-14.2); PT RATIO 1.4
[2017-05-20 19:34] LABS: CREATINE KINASE 465 IU/L (23-200)
[2017-05-20 19:35] LABS: PARTIAL THROMBOPLASTIN TIME 35.1 Sec (25.0-35.0)
[2017-05-20 19:35] LABS: PHOSPHORUS 9.3 mg/dl (2.5-4.9)
[2017-05-20 19:36] LABS: THROMBIN TIME 14.6 SEC (13.8-19.1)
[2017-05-20 19:57] LABS: CK-MB 5.77 ng/ml (0.0-2.4); TROPONIN-I < 0.012 ng/ml (0.00-0.12)
[2017-05-20] MEDS: DOBUTamine/D5W 1 MG/ML DRIP 250 ML IV SCH (21:00)
[2017-05-20 21:44] LABS: ALBUMIN 4.9 g/dl (3.3-4.9); ALBUMIN/GLOBULIN RATIO 1.28; BILIRUBIN,INDIRECT 0.2 mg/dl (0-1.1); BILIRUBIN,TOTAL 0.2 mg/dl (0.2-1.3); CALCIUM 9.3 mg/dl (8.4-10.2); POTASSIUM 3.8 mmol/L (3.5-5.1); TOTAL PROTEIN 8.7 g/dl (6.1-8.1)
[2017-05-20 22:03] LABS: CREATININE 5.11 mg/dl (0.61-1.24)
[2017-05-20] MEDS: DOPamine-D5W 1.6 MG/ML 250 ML IV SCH (22:30)
[2017-05-20 23:57] LABS: ABNORMAL IP MESSAGE 1; EOSINOPHILS # 0.1 10^3/ul (0.0-0.5); EOSINOPHILS % 0.6 % (0.0-7.0); HEMATOCRIT 22.9 % (42.0-52.0); HEMOGLOBIN 7.5 g/dl (14.0-18.0); LYMPHOCYTES # 0.4 10^3/ul (0.8-2.9); LYMPHOCYTES % 4.6 % (15.0-51.0); MEAN CORPUSCULAR HGB CONC 32.8 g/dl (32.0-37.0); MEAN CORPUSCULAR VOLUME 91.6 fl (82.0-101.0); MEAN PLATELET VOLUME 11.9 fl (7.4-10.4); MONOCYTE # 0.3 10^3/ul (0.3-0.9); MONOCYTES % 3.1 % (0.0-11.0); NEUTROPHIL # 8.3 10^3/ul (1.6-7.5); NEUTROPHILS % 91.4 % (39.0-77.0); POSITIVE DIFF @See below; RED CELL DISTRIBUTION WIDTH 15.3 % (11.5-14.5); WHITE BLOOD COUNT 9.1 10^3/ul (4.8-10.8)
[2017-05-21] VITALS (11 sets, daily range): BP systolic 119–136; BP diastolic 59–73; PULSE 65–68; RESP 12–13
[2017-05-21] MEDS ORDERED: PIPER-TAZO 2.25 GM (PMX) 50 ML IVPB ONE
[2017-05-21] MEDS ORDERED: FUROSEMIDE 100 MG INJ IV ONE
[2017-05-21] MEDS ORDERED: MANNITOL 25% 50 ML INJ IV* ONE
[2017-05-21] MEDS ORDERED: HEPARIN 1000 UNITS/ML 10 ML INJ IV ONE
[2017-05-21 00:02] LABS: PLATELET COUNT 169 10^3/UL (140-415)
[2017-05-21 00:19] LABS: ALBUMIN 4.9 g/dl (3.3-4.9); ALBUMIN/GLOBULIN RATIO 1.25; BILIRUBIN,INDIRECT 0.2 mg/dl (0-1.1); BILIRUBIN,TOTAL 0.2 mg/dl (0.2-1.3); CALCIUM 9.1 mg/dl (8.4-10.2); MAGNESIUM 2.9 mg/dl (1.7-2.5); PHOSPHORUS 10.4 mg/dl (2.5-4.9); POTASSIUM 3.8 mmol/L (3.5-5.1); TOTAL PROTEIN 8.8 g/dl (6.1-8.1)
[2017-05-21 00:24] LABS: CREATININE 4.96 mg/dl (0.61-1.24)
[2017-05-21 00:25] LABS: AADO2 Arterial 165.6 mmHg (7.0-24.0); Arterial Base Excess -5.5 mmol/L (-3.0-3); Arterial COHb 0.3 % (0.0-3.0); Arterial Fraction of Oxyhgb 93.3 % (93.0-99.0); Arterial HCO3 19.8 mmol/L (22.0-26.0); Arterial MetHb 0.2 % (0.0-1.5); Arterial Total Hemglobin 9.6 g/dl (12.0-18.0); Blood Gas Low PEEP Setting 0 cmH2O; MODE VENT - BIPHASIC
[2017-05-21 00:27] LABS: INR 1.38; PT RATIO 1.3
[2017-05-21 00:28] LABS: PARTIAL THROMBOPLASTIN TIME 25.4 Sec (25.0-35.0); THROMBIN TIME 13.3 SEC (13.8-19.1)
--- NOTE | 2017-05-21 00:47 | RADRPT ---
PROCEDURE: Portable chest x-ray. CLINICAL INDICATION: 22 years male , organ donation protocol. TECHNIQUE: Portable AP view of the chest. COMPARISON: Chest x-ray from earlier the same evening FINDINGS: Right internal jugular double-lumen central venous line with tip over inferior SVC. Endotracheal tub e is situated high 8.3 cm from darryl. Cardiomediastinal contours are normal. Left lower lobe consolidation with volume loss likely represents atelectasis although aspiration or infection cannot be excluded. Negative for pleural effusion or pneumothorax.. No acute bony abnormality. IMPRESSION: Left lower lobe consolidation with volume loss likely represents atelectasis although aspiration or infection cannot be excluded. It is unchanged from earlier the same evening. Endotracheal tube is situated high 8.3 cm from darryl. RPTAT: HCTS Physician Jens Date Time Electronically viewed and signed by Bud Stuart Physician on 05/21/2017 00:47 CS/
[2017-05-21] MEDS: LEVOTHYROXINE 200 MCG in SOD CHLORIDE 0.9% 500 ML IV SCH (01:41)
[2017-05-21 01:43] LABS: CREATINE KINASE 626 IU/L (23-200)
[2017-05-21 01:59] LABS: CK-MB 9.74 ng/ml (0.0-2.4); TROPONIN-I < 0.012 ng/ml (0.00-0.12)
[2017-05-21 02:13] LABS: ALBUMIN 4.7 g/dl (3.3-4.9); ALBUMIN/GLOBULIN RATIO 1.34; BILIRUBIN,INDIRECT 0.1 mg/dl (0-1.1); BILIRUBIN,TOTAL 0.1 mg/dl (0.2-1.3); CALCIUM 9.3 mg/dl (8.4-10.2); TOTAL PROTEIN 8.2 g/dl (6.1-8.1)
[2017-05-21 02:20] LABS: CREATININE 4.89 mg/dl (0.61-1.24)
[2017-05-21] MEDS ORDERED: FENTAnyl 50 MCG/ML VIAL ONE (03:29)
[2017-05-21 03:32] LABS: AADO2 Arterial 359.7 mmHg (7.0-24.0); Arterial Base Excess -3.2 mmol/L (-3.0-3); Arterial COHb 0.3 % (0.0-3.0); Arterial Fraction of Oxyhgb 98.9 % (93.0-99.0); Arterial HCO3 21.3 mmol/L (22.0-26.0); Arterial MetHb 0.2 % (0.0-1.5); Arterial Total Hemglobin 8.7 g/dl (12.0-18.0); MODE VENT - AC
[2017-05-21] MEDS ORDERED: ESMOLOL 10 ML ONE (04:08)
[2017-05-21] MEDS ORDERED: ROCURONIUM 50 MG INJ ONE (04:08)
== END 2017-05-21 02:20 | disposition expired | DRG 80 ==
LOC: ICU 15:45
PROVIDERS: ADMIT Internal Medicine; ATTEND Internal Medicine
DX: J96.90 Respiratory failure, unspecified, unspecified whether with hypoxia or hypercapnia; R57.9 Shock, unspecified; S06.6X9A Traumatic subarachnoid hemorrhage with loss of consciousness of unspecified duration, initial encounter; Z99.11 Dependence on respirator [ventilator] status; G91.9 Hydrocephalus, unspecified; N17.9 Acute kidney failure, unspecified; V49.9XXA Car occupant (driver) (passenger) injured in unspecified traffic accident, initial encounter
CPT/HCPCS: 36430; 36600; 71010; 76700; 80053; 81001; 82150; 82330; 82550; 82553; 82803; 82962; 82977; 83605; 83615; 83690; 83735; 83930; 84100; 84484; 85014; 85018; 85025; 85049; 85610; 85670; 85730; 86644; 86850; 86900; 86901; 86920; 87040; 87070; 87086; 90935; 93005; 93306; 93312; 93320; 93325; 94003; 94640; J1250; J1265; J1644; J1815; J2150; J2543; J2930; J3010; J7030; J7040; J7060; P9016; P9047